=== PATIENT | female | born 2000 | race African-American/Black ===

== ENCOUNTER 2025-07-15 14:46 | Emergency (ER) | payer SELFPAY ==
[2025-07-15 14:56] VITALS: BP 116/77; PULSE 71; RESP 16; TEMP 36.5; O2SAT 100
--- NOTE | 2025-07-15 15:23 | ED.DENTAL ---
HPI - Dental/Oral General Chief complaint: Dental/Oral Stated complaint: Mouth Infection Time Seen by Provider: 07/15/25 15:15 Source: patient and RN notes reviewed Mode of arrival: ambulatory Limitations: no limitations History of Present Illness HPI Narrative: 25-year-old female presents Express Care complaining of dental pain since yesterday. Patient says she has an appointment tomorrow with a dentist in [facility]. Patient says she has a was not tooth to the left lower mouth that is hurting. Patient reports some drainage is well. Patient denies any difficulty breathing, difficulty clearing secretions, dysphagia, fevers, eczema chills, chest pain, or any other symptoms. Patient denies any significant past medical history. Related Data Allergies Allergy/AdvReac Type Severity Reaction Status Date / Time No Known Allergies Allergy Verified 07/15/25 14:56 Review of Systems Review of Systems: CONSTITUTIONAL: Denies fever, chills, or sweats. EYES: Denies visual changes, redness, or discharge. ENT: Denies rhinorrhea, congestion, sore throat, dysphagia, difficulty clearing secretions, or otalgia. MOUTH: Positive for tooth pain. CARDIOVASCULAR: Denies chest pain, palpitations, or edema. RESPIRATORY: Denies cough or dyspnea. GASTROINTESTINAL: Denies abdominal pain, nausea, vomiting, or diarrhea. GENITOURINARY: Denies dysuria or hematuria. SKIN: Denies rash or itching. MUSCULOSKELETAL: Denies back pain, joint pain, or myalgia. NEUROLOGIC: Denies headache, numbness, or weakness. PSYCHIATRIC: Denies anxiety or depression. All other systems reviewed are negative, except as documented in HPI. PMFSH Comments At the time of my signature, I reviewed and agree with the nursing past medical, surgical, social, and family history. There is no relevant family history pertinent to the patient complaint. Exam Narrative: GENERAL: This is a well-nourished, well-developed adult, in no apparent distress. They are non ill-appearing, nontoxic appearing. HEAD: normocephalic, atraumatic. EYES: Sclera clear/white. Conjunctiva normal. Vision is grossly intact. Extraocular movements intact EARS: External ears normal, Hearing grossly intact. NOSE: External nose normal THROAT: Mucous membranes moist, posterior pharynx clear, without erythema or swelling. Uvula midline. OROPHARYNX: Poor dental hygiene. No fractured her missing teeth. No obvious dental caries present. Third molar left lower gum with exudate in surrounding erythema and swelling. Tender to palpate. No pain or swelling of the tongue. Tongue is normal. NECK: Neck supple, CARDIOVASCULAR: Regular rate and rhythm RESPIRATORY: Respiratory rate normal, respiratory effort nonlabored, no respiratory distress SKIN: warm, Dry, intact with no suspicious lesions or rash, good texture and turgor. NEURO: awake, alert, and oriented to person, place and time. There were no obvious focal neurologic abnormalities. EXTREMITIES: No joint tenderness, effusion, or edema noted. BACK: Nontender without deformity. Course Course Level of Care: Express Care Visit Vital Signs Vital signs: Vital Signs Temperature 97.7 F 07/15/25 14:56 Pulse Rate 71 07/15/25 14:56 Respiratory Rate 16 07/15/25 14:56 Blood Pressure 116/77 07/15/25 14:56 Pulse Oximetry 100 07/15/25 14:56 Temperature 97.7 F 07/15/25 14:56 Pulse Rate 71 07/15/25 14:56 Respiratory Rate 16 07/15/25 14:56 Blood Pressure 116/77 07/15/25 14:56 Pulse Oximetry 100 07/15/25 14:56 MDM MDM Narrative Medical decision making narrative: Patient likely has dental infection from an impacted wisdom tooth. Patient says she has an appointment tomorrow with a dentist. Will send her home on Augmentin sent her home with ibuprofen and lidocaine as needed for pain. Discussed physical exam findings. Advised supportive measures and signs/symptoms to go to the ER. Pt is appropriate for outpt treatment and f/u. Differential Diagnosis Differential Diagnosis: Impacted tooth, dental abscess, dental infection, gingival abscess, gingivitis, dental caries Critical Care Time Critical Care Time Critical Care Time: No Discharge Plan Discharge Clinical Impression: Impacted tooth, Dental infection Patient Disposition: Home Condition: Stable Instructions: Antibiotic Form, Dental Abscess (ED) Additional Instructions: Take the antibiotics as directed. Take the ibuprofen as directed. Alternate with Tylenol. Follow instructions on the bottle. You may use viscous lidocaine as needed for pain in your mouth. Use a Q-tip and apply directly to the affected area. [place] your teeth and floss at least 2 times a day. You may use mouthwash after each brushing as well. Follow-up with dentist as scheduled tomorrow. If you developed worsening swelling, fevers, difficulty swallowing or breathing, difficulty opening her jaw, swelling under the tongue, or any other concerns please go to the ER immediately. Patient Language: Faroese Prescriptions: New ibuprofen 800 mg tablet 800 mg PO Q6H PRN (Reason: pain) Qty: 30 0RF lidocaine HCl [Lidocaine Viscous] 2 % solution 1 applic mucous membrane TID PRN (Reason: pain) Qty: 100 0RF Rx Instructions: Apply to affected area with q-tip amoxicillin-pot clavulanate 875-125 mg tablet 1 tablet PO Q12H 7 Days Qty: 14 0RF Follow-up/Referrals: PHYSICIAN,[employer] [Primary Care Provider, Internal Medicine] Stand Alone Forms: Work/School Release IP Time of Disposition: 15:19
== END 2025-07-15 15:26 | disposition home or self-care (01) ==
DX: K01.1 Impacted teeth (principal); K04.7 Periapical abscess without sinus
CPT/HCPCS: 99203; G0463